=== PATIENT | female | born 1965 | race Two or more races ===

== ENCOUNTER 2018-04-15 09:46 | Inpatient (IN) | payer MEDICARE, MEDICAID ==
[~2018-04-15] VITALS: Ht 160 cm; Wt 77.9 kg
[2018-04-15 10:21] LABS: Basophils # (auto) 0 uL; Basophils % (auto) 0.4 % (0.0-2.0); Eosinophils # (auto) 0 uL; Monocytes # (auto) 0.4 uL; Red Blood Cells 4.34 10^6/uL (4.0-5.20)
[2018-04-15 10:22] LABS: Hematocrit 32.6 % (36.0-46.0); Hemoglobin 10.3 g/dL (12.2-16.2); Lymphocytes % (auto) 20.2 % (10.0-50.0); Mean Corpuscular Hemoglobin 23.8 pg (28.0-32.0); Mean Corpuscular Hgb Conc. 31.6 g/dL (32.0-36.0); Mean Corpuscular Volume 75.1 fL (80.0-100.0); Neutrophils # (auto) 7.6 uL; Neutrophils % (auto) 75.4 % (37.0-80.0); Nucleated Red Blood Cells % 0.1 %; Platelet Count (auto) 310 10^3/uL (140-450); Red Cell Distribution Width 18.3 % (11.8-14.3); White Blood Cell 10.1 10^3/uL (4.4-10.8)
[2018-04-15 10:34] LABS: Anion Gap 9 (5-15); Blood Urea Nitrogen 13 mg/dL (7-18); Calcium 8.7 mg/dL (8.5-10.1); Carbon Dioxide 23 mmol/L (21-32); Chloride 104 mmol/L (98-107); Glucose 84 mg/dL (74-106); Potassium 3.8 mmol/L (3.5-5.1); Sodium 136 mmol/L (136-145)
[2018-04-15 10:41] LABS: Alanine Aminotransferase 37 U/L (13-56); Alkaline Phosphatase 123 U/L (45-117); Aspartate Aminotransferase 43 U/L (15-37); BUN/Creatinine Ratio 11.9; Bilirubin, Total 0.3 mg/dL (0.2-1.0); GFR African American 67 mL/min; GFR Non-African American 55 mL/min; Total Protein 7.8 g/dL (6.4-8.2)
[2018-04-15 12:16] LABS: Urine Bacteria NONE SEEN /hpf (None Seen); Urine Blood TRACE /uL (Negative); Urine Specific Gravity 1.019 (1.001-1.035); Urine WBC 1 /hpf (0 - 5)
[2018-04-15] MEDS ORDERED: SODIUM CHLORIDE 0.9% 1,000 ML IVB ONE (16:30)
[2018-04-15] MEDS ORDERED: cefTRIAXone 1GM/50ML D5W 50 ML IV ONE (16:30)
[2018-04-15] MEDS ORDERED: ACETAMINOPHEN 325 MG TAB PO ONE (16:30)
[2018-04-15 18:54] LABS: INR 0.99 (0.9-1.15); Partial Thromboplastin Time 32.6 sec (23.78-33.04); Prothrombin Time 10.6 sec (9.27-12.13)
[2018-04-15] MEDS ORDERED: ONDANSETRON HCL 4 MG/2 ML VIAL IV PRN (20:15)
[2018-04-15] MEDS ORDERED: HYDROcodone-ACET 5/325MG TAB PO PRN (20:15)
[2018-04-15] MEDS ORDERED: NITROGLYCERIN 0.4 MG SL TAB SL PRN (20:15)
[2018-04-15] MEDS ORDERED: MORPHINE SULFATE 4 MG/ML SYR/VIAL IV PRN (20:15)
[2018-04-15 20:28] VITALS: BP 96/61
[2018-04-15] MEDS: AZITHROMYCIN 500MG/ 250ML 250 ML IV SCH (21:56)
[2018-04-15] MEDS: ACETAMINOPHEN 500 MG TAB PO PRN (21:56)
[2018-04-15] MEDS: methylPREDNISolone SOD SUCC 40 MG/ML VL IV SCH (21:56)
[2018-04-15] MEDS: FAMOTIDINE 20 MG TAB PO SCH (21:57)
[2018-04-15 22:00] VITALS: BP 99/65
[2018-04-15] MEDS: IPRATROPIUM BROM 0.5 MG/2.5ML INH SOL NEB SCH (22:34)
[2018-04-15] MEDS: ALBUTEROL SULF 2.5 MG/0.5ML(0.5%) NEB SOLN NEB SCH (22:34)
[2018-04-15] MEDS: BUDESONIDE (INHALATION) 0.5 MG/2 ML NEB NEB SCH (22:34)
[2018-04-16 04:43] VITALS: BP 99/65
[2018-04-16 05:01] VITALS: BP 101/64
[2018-04-16 05:53] LABS: Basophils # (auto) 0 uL; Basophils % (auto) 0.1 % (0.0-2.0); Eosinophils # (auto) 0 uL; Monocytes # (auto) 0.1 uL; Monocytes % (auto) 1.3 % (0.0-12.0)
[2018-04-16 05:56] LABS: Hematocrit 27.8 % (36.0-46.0); Hemoglobin 8.8 g/dL (12.2-16.2); Lymphocytes # (auto) 1.1 uL; Lymphocytes % (auto) 12.6 % (10.0-50.0); Mean Corpuscular Hemoglobin 23.8 pg (28.0-32.0); Mean Corpuscular Hgb Conc. 31.8 g/dL (32.0-36.0); Mean Corpuscular Volume 74.8 fL (80.0-100.0); Neutrophils # (auto) 7.5 uL; Platelet Count (auto) 262 10^3/uL (140-450); Red Blood Cells 3.72 10^6/uL (4.0-5.20); Red Cell Distribution Width 18.3 % (11.8-14.3); White Blood Cell 8.7 10^3/uL (4.4-10.8)
[2018-04-16 06:39] LABS: Potassium 3.7 mmol/L (3.5-5.1)
[2018-04-16 06:45] LABS: BUN/Creatinine Ratio 12.9; Calcium 8.1 mg/dL (8.5-10.1)
[2018-04-16] MEDS: IPRATROPIUM BROM 0.5 MG/2.5ML INH SOL NEB SCH ×4 (07:05→23:52)
[2018-04-16] MEDS: ALBUTEROL SULF 2.5 MG/0.5ML(0.5%) NEB SOLN NEB SCH ×4 (07:05→23:52)
[2018-04-16] MEDS: BUDESONIDE (INHALATION) 0.5 MG/2 ML NEB NEB SCH ×2 (07:05→19:06)
[2018-04-16 09:00] VITALS: BP 106/69
[2018-04-16] MEDS ORDERED: PNEUMOCOCCAL VACC POLYS 25 MCG/0.5 ML VIAL IM SCH (10:00)
[2018-04-16] MEDS ORDERED: INFLUENZA QUAD 2018-2019 0.5 ML SYRG IM ONE (10:00)
[2018-04-16] MEDS: AZITHROMYCIN 500MG/ 250ML 250 ML IV SCH (10:00)
[2018-04-16] MEDS: methylPREDNISolone SOD SUCC 40 MG/ML VL IV SCH ×2 (11:09→22:47)
[2018-04-16] MEDS: cefTRIAXone 1GM/50ML D5W 50 ML IV SCH (11:09)
[2018-04-16] MEDS: PANTOPRAZOLE 40 MG/10 ML VIAL IV SCH (11:09)
[2018-04-16] MEDS: FAMOTIDINE 20 MG TAB PO SCH ×2 (11:10→22:47)
[2018-04-16] MEDS: MORPHINE SULF INJ 2 MG/ML SYRINGE 1ML IV PRN ×2 (11:15→19:26)
[2018-04-16 13:00] VITALS: BP 102/67
[2018-04-16] MEDS: SODIUM CHLORIDE 0.9% 1,000 ML IV SCH (13:30)
[2018-04-16 17:34] VITALS: BP 102/67
[2018-04-16] MEDS ORDERED: IOHEXOL 350 MG/ML 100ML IJ ONE (18:10)
[2018-04-16 22:00] VITALS: BP 91/61
[2018-04-17 05:00] VITALS: BP 97/59
[2018-04-17] MEDS: SODIUM CHLORIDE 0.9% 1,000 ML IV SCH ×2 (06:26→16:10)
--- NOTE | 2018-04-17 07:00 | NUR ---
Opening Shift Note Assumed care of patient, awake, alert, and oriented x4. No S/S of distress/SOB, but patient is reporting pain with deep breaths of 8/10. IV in right AC 20 gauge asymptomatic, intact, patent, and saline locked. Bed locked and in lowest position and call light is within reach. Instructed on POC and to call for assist PRN, and patient verbalized understanding. Will continue to monitor for changes Q1hr and PRN.
[2018-04-17] MEDS: IPRATROPIUM BROM 0.5 MG/2.5ML INH SOL NEB SCH ×4 (07:20→23:39)
[2018-04-17] MEDS: BUDESONIDE (INHALATION) 0.5 MG/2 ML NEB NEB SCH ×2 (07:20→19:11)
[2018-04-17] MEDS: ALBUTEROL SULF 2.5 MG/0.5ML(0.5%) NEB SOLN NEB SCH ×4 (07:20→23:39)
[2018-04-17 07:32] LABS: Potassium 3.6 mmol/L (3.5-5.1)
[2018-04-17 07:44] LABS: % Iron Saturation 3.8 % (15-50); Albumin 3.6 g/dL (3.4-5.0); BUN/Creatinine Ratio 9.8; Bilirubin, Total 0.2 mg/dL (0.2-1.0); Calcium 8.9 mg/dL (8.5-10.1); Total Protein 7.5 g/dL (6.4-8.2)
[2018-04-17 07:45] LABS: Basophils # (auto) 0 uL; Basophils % (auto) 0.1 % (0.0-2.0); Eosinophils # (auto) 0 uL; Monocytes # (auto) 0.3 uL; Monocytes % (auto) 2.2 % (0.0-12.0)
[2018-04-17 07:49] LABS: Hematocrit 31.1 % (36.0-46.0); Hemoglobin 9.5 g/dL (12.2-16.2); Lymphocytes # (auto) 1.6 uL; Lymphocytes % (auto) 11.8 % (10.0-50.0); Mean Corpuscular Hemoglobin 23.2 pg (28.0-32.0); Mean Corpuscular Hgb Conc. 30.7 g/dL (32.0-36.0); Mean Corpuscular Volume 75.6 fL (80.0-100.0); Neutrophils # (auto) 11.5 uL; Neutrophils % (auto) 85.9 % (37.0-80.0); Platelet Count (auto) 358 10^3/uL (140-450); Red Blood Cells 4.11 10^6/uL (4.0-5.20); Red Cell Distribution Width 18.3 % (11.8-14.3); White Blood Cell 13.4 10^3/uL (4.4-10.8)
[2018-04-17] MEDS: cefTRIAXone 1GM/50ML D5W 50 ML IV SCH (08:59)
[2018-04-17 09:00] VITALS: BP 99/66
[2018-04-17] MEDS: MORPHINE SULF INJ 2 MG/ML SYRINGE 1ML IV PRN (10:08)
[2018-04-17] MEDS: AZITHROMYCIN 500MG/ 250ML 250 ML IV SCH (10:48)
[2018-04-17] MEDS: methylPREDNISolone SOD SUCC 40 MG/ML VL IV SCH ×2 (10:49→20:34)
[2018-04-17] MEDS: PANTOPRAZOLE 40 MG/10 ML VIAL IV SCH (10:49)
[2018-04-17] MEDS: FAMOTIDINE 20 MG TAB PO SCH ×2 (10:49→20:34)
[2018-04-17 13:00] VITALS: BP 101/66
[2018-04-17] MEDS: SODIUM FERR GLUC 62.5MG/5ML 125 MG in SODIUM CHL 0.9% 100 ML IV SCH (14:00)
[2018-04-17] MEDS: guaiFENesin 200 MG/10 ML UD GT PRN (14:05)
[2018-04-17 16:30] VITALS: BP 140/96
[2018-04-17] MEDS: HEPARIN SODIUM (PORCINE) 5000 UNITS/ML 1ML VIAL SC SCH (20:28)
[2018-04-17] MEDS: guaiFENesin-DM 100/10mg/5ml SYR PO PRN (20:35)
[2018-04-17] MEDS: ACETAMINOPHEN 500 MG TAB PO PRN (20:36)
[2018-04-17 22:00] VITALS: BP 124/78
[2018-04-18 05:00] VITALS: BP 117/75
[2018-04-18] MEDS: HEPARIN SODIUM (PORCINE) 5000 UNITS/ML 1ML VIAL SC SCH ×3 (05:14→21:21)
[2018-04-18] MEDS: guaiFENesin-DM 100/10mg/5ml SYR PO PRN (05:14)
[2018-04-18] MEDS: SODIUM CHLORIDE 0.9% 1,000 ML IV SCH ×2 (05:15→18:31)
[2018-04-18] MEDS: ALBUTEROL SULF 2.5 MG/0.5ML(0.5%) NEB SOLN NEB SCH ×4 (05:55→23:55)
[2018-04-18] MEDS: BUDESONIDE (INHALATION) 0.5 MG/2 ML NEB NEB SCH ×2 (05:55→20:00)
[2018-04-18] MEDS: IPRATROPIUM BROM 0.5 MG/2.5ML INH SOL NEB SCH ×4 (05:55→23:55)
[2018-04-18 06:29] LABS: Basophils # (auto) 0 uL; Basophils % (auto) 0.1 % (0.0-2.0); Eosinophils # (auto) 0 uL; Lymphocytes # (auto) 1.4 uL; Lymphocytes % (auto) 9.4 % (10.0-50.0); Monocytes # (auto) 0.4 uL; Nucleated Red Blood Cells % 0.1 %
[2018-04-18 06:31] LABS: Hematocrit 28.8 % (36.0-46.0); Hemoglobin 9.1 g/dL (12.2-16.2); Mean Corpuscular Hemoglobin 23.9 pg (28.0-32.0); Mean Corpuscular Hgb Conc. 31.7 g/dL (32.0-36.0); Mean Corpuscular Volume 75.2 fL (80.0-100.0); Monocytes % (auto) 2.6 % (0.0-12.0); Neutrophils # (auto) 12.9 uL; Neutrophils % (auto) 87.9 % (37.0-80.0); Platelet Count (auto) 336 10^3/uL (140-450); Red Blood Cells 3.83 10^6/uL (4.0-5.20); Red Cell Distribution Width 18.1 % (11.8-14.3); White Blood Cell 14.7 10^3/uL (4.4-10.8)
[2018-04-18 06:45] LABS: Calcium 8.5 mg/dL (8.5-10.1); Potassium 4.2 mmol/L (3.5-5.1)
--- NOTE | 2018-04-18 07:30 | NUR ---
Opening Shift Note Assumed care of patient, awake and alert. No S/S of distress/SOB or pain. Instructed on POC and to call for assist PRN, will continue to monitor for changes Q1hr and PRN. Bed locked in lowest position with two side rails up and call light in reach.
[2018-04-18 08:38] VITALS: BP 102/62
--- NOTE | 2018-04-18 09:57 | NUR ---
PT REPORTS THAT SHE IS DOING WELL AND DOES NOT NEED P.T.
[2018-04-18] MEDS: PANTOPRAZOLE 40 MG/10 ML VIAL IV SCH (10:01)
[2018-04-18] MEDS: FAMOTIDINE 20 MG TAB PO SCH ×2 (10:01→21:20)
[2018-04-18] MEDS: methylPREDNISolone SOD SUCC 40 MG/ML VL IV SCH (10:01)
[2018-04-18] MEDS: cefTRIAXone 1GM/50ML D5W 50 ML IV SCH (10:01)
--- NOTE | 2018-04-18 10:50 | NUR ---
DR BUTTERFIELD ROUNDMARCELO, NEW ORDERS RECEIVED WILL CARRY OUT.
[2018-04-18] MEDS: AZITHROMYCIN 500MG/ 250ML 250 ML IV SCH (12:18)
[2018-04-18 12:37] VITALS: BP 110/76
[2018-04-18] MEDS: SODIUM FERR GLUC 62.5MG/5ML 125 MG in SODIUM CHL 0.9% 100 ML IV SCH (14:34)
[2018-04-18 16:32] VITALS: BP 111/72
[2018-04-18] MEDS: MORPHINE SULF INJ 2 MG/ML SYRINGE 1ML IV PRN (21:22)
[2018-04-18 22:00] VITALS: BP_SYST 106; BP_SYST 113; BP_DIAS 56; BP_DIAS 66
[2018-04-18] MEDS ORDERED: methylPREDNISolone SOD SUCC 40 MG/ML VL IV SCH (22:00)
[2018-04-19 05:00] VITALS: BP 106/63
[2018-04-19] MEDS: HEPARIN SODIUM (PORCINE) 5000 UNITS/ML 1ML VIAL SC SCH ×2 (06:00→14:00)
[2018-04-19] MEDS: ALBUTEROL SULF 2.5 MG/0.5ML(0.5%) NEB SOLN NEB SCH ×2 (06:18→11:41)
[2018-04-19] MEDS: IPRATROPIUM BROM 0.5 MG/2.5ML INH SOL NEB SCH ×2 (06:18→11:41)
[2018-04-19] MEDS: BUDESONIDE (INHALATION) 0.5 MG/2 ML NEB NEB SCH (06:18)
--- NOTE | 2018-04-19 07:40 | NUR ---
Opening Shift Note Assumed care of patient, awake and alert. No S/S of distress/SOB or pain. Instructed on POC and to call for assist PRN, will continue to monitor for changes Q1hr and PRN. Bed locked in lowest position with two side rails up and call light in reach. Educated the patient on the importance of walking. Patient verbalized understanding.
[2018-04-19 08:14] VITALS: BP 102/64
[2018-04-19] MEDS: SODIUM CHLORIDE 0.9% 1,000 ML IV SCH (08:36)
[2018-04-19] MEDS: guaiFENesin 200 MG/10 ML UD GT PRN (08:42)
[2018-04-19] MEDS: cefTRIAXone 1GM/50ML D5W 50 ML IV SCH (08:42)
[2018-04-19] MEDS: FAMOTIDINE 20 MG TAB PO SCH (09:21)
[2018-04-19] MEDS: AZITHROMYCIN 500MG/ 250ML 250 ML IV SCH (09:21)
[2018-04-19] MEDS: PANTOPRAZOLE 40 MG/10 ML VIAL IV SCH (09:21)
[2018-04-19] MEDS ORDERED: methylPREDNISolone SOD SUCC 40 MG/ML VL IV SCH (10:00)
--- NOTE | 2018-04-19 10:19 | NUR ---
PATIENT AMBULATING IN THE HALLWAY NO SIGNS AND SYMPTOMS OF DISTRESS NOTED, PATIENT JUST IS COUGHING AT THIS TIME.
[2018-04-19 12:02] VITALS: BP 115/74
[2018-04-19 14:03] VITALS: BP 115/74
[2018-04-19] MEDS: SODIUM FERR GLUC 62.5MG/5ML 125 MG in SODIUM CHL 0.9% 100 ML IV SCH (14:20)
--- NOTE | 2018-04-19 15:38 | NUR ---
Discharge instructions given as ordered. Encourage to follow up with PMD as instructed. All questions and concerns addressed. Patient verbalized understanding. Medication reconciliation form completed and copy given to patient. No Home medications held in Pharmacy returned to patient, and no needed vaccines given. IV removed with catheter intact, pressure dressing applied, Patient walked to vehicle via with all personal belongings, accompanied by staff and family member. No distress noted at time of departure.
== END 2018-04-19 16:22 | disposition home health service (06) | DRG 195 ==
LOC: ER 09:51 → OVERFLOW 20:14 → WEST WING 20:48
PROVIDERS: ADMIT Nurse Practitioner Acute Care; ATTEND Internal Medicine
DX: J18.0 Bronchopneumonia, unspecified organism (principal); K21.9 Gastro-esophageal reflux disease without esophagitis; M32.9 Systemic lupus erythematosus, unspecified; D63.8 Anemia in other chronic diseases classified elsewhere; M19.90 Unspecified osteoarthritis, unspecified site; M34.9 Systemic sclerosis, unspecified; E86.0 Dehydration; D50.9 Iron deficiency anemia, unspecified; M06.9 Rheumatoid arthritis, unspecified; Z82.49 Family history of ischemic heart disease and other diseases of the circulatory system
CPT/HCPCS: 36415; 70496; 70498; 71045; 71046; 80048; 80053; 80061; 81001; 82728; 83036; 83540; 83550; 83605; 83735; 84484; 85025; 85045; 85610; 85730; 87040; 87804; 93005; 94640; 94761; 96361; 96365; 96375; C9113; G0378; J0696

== ENCOUNTER 2019-12-31 13:41 | Emergency (ER) | payer MEDICARE, MEDICAID ==
[~2019-12-31] VITALS: Ht 157.5 cm; Wt 62.6 kg
[2019-12-31 14:10] VITALS: BP 110/82
== END 2019-12-31 16:19 | disposition home or self-care (01) ==
LOC: ER 13:41
DX: J20.9 Acute bronchitis, unspecified (principal); K21.9 Gastro-esophageal reflux disease without esophagitis; Z90.49 Acquired absence of other specified parts of digestive tract; Z20.828 Contact with and (suspected) exposure to other viral communicable diseases
CPT/HCPCS: 36415; 71045; 87426; 93005; 99285; U0003